=== PATIENT | male | born 1970 | race Caucasian/White ===

== ENCOUNTER 2019-07-23 23:30 | Emergency (ER) | payer BC ==
[~2019-07-23] VITALS: Ht 177.8 cm; Wt 131.8 kg
[2019-07-23 23:31] VITALS: TEMP 98.1
[2019-07-24 00:08] LABS: ALANINE AMINOTRANSFERASE 60 U/L (21-72); ALBUMIN 4.5 gm/dL (3.5-5.0); ALKALINE PHOSPHATASE 97 U/L (50-136); ANION GAP 12 mmol/L (7-16); AST,SGOT 41 U/L (15-37); BILIRUBIN,TOTAL 0.4 mg/dL (0.0-1.0); BLOOD UREA NITROGEN 11 mg/dL (9-20); CALCIUM 9.5 mg/dL (8.4-10.2); CARBON DIOXIDE 25 mmol/L (22-30); CHLORIDE 104 mmol/L (98-107); CREATININE, serum 0.75 (0.66-1.25); GLUCOSE 156 mg/dL (74-106); POTASSIUM 3.9 mmol/L (3.4-5.0); SODIUM 141 mmol/L (137-145); TOTAL PROTEIN 7.8 gm/dL (6.4-8.2)
[2019-07-24 00:10] LABS: BASO # 0.1 (0.0-0.2); BASO % 1.1 % (0.0-2.0); EOS # 0.3 (0.0-0.7); EOS % 3.4 % (0-4.0); GRAN # 5.3 (1.4-6.5); HEMATOCRIT 45.8 % (42.0-52.0); LYMPH % 24.1 % (20.0-51.0); MEAN CELL VOLUME 89 fl (80.0-100.0); MEAN CORPUSCULAR HEMOGLOBIN 31 pg (27.0-31.0); MEAN CORPUSCULAR HGB CONC 35 g/dl (33.0-37.0); MEAN PLATELET VOLUME 8.8 fl (7.4-10.4); MONO # 0.6 (0.1-0.6); MONO % 6.8 % (1.7-9.3); PLATELET COUNT 254 K/mm3 (130-400); RED BLOOD COUNT 5.13 M/mm3 (4.20-5.60); REDCELL DISTRIBUTION WIDTH-CV 12.8 % (11.5-14.5)
[2019-07-24 00:32] LABS: TROPONIN-I < 0.012 ng/mL (0.000-0.035)
[2019-07-24] MEDS ORDERED: ANTIVERT 25MG25 MG PO (00:35)
[2019-07-24] MEDS ORDERED: ZOFRAN ODT4 MG PO (00:35)
[2019-07-24 01:10] VITALS: BP 140/78; PULSE 93
== END 2019-07-24 01:10 | disposition home or self-care (01) ==
LOC: COL.ER 23:30
PROVIDERS: Emergency Medicine
DX: R42 Dizziness and giddiness (principal); I10 Essential (primary) hypertension; Z88.0 Allergy status to penicillin
CPT/HCPCS: J2550; J7030

== ENCOUNTER → 2020-01-31 | Outpatient (CLI) | payer BC ==
[~2020-01-31] MED LIST: ANTIVERT 25MG25 MG PO; ZOFRAN ODT4 MG PO
== END ==
LOC: COL.RAD 12:00
DX: E83.119 Hemochromatosis, unspecified (principal); R79.89 Other specified abnormal findings of blood chemistry; R94.5 Abnormal results of liver function studies; Z12.11 Encounter for screening for malignant neoplasm of colon

== ENCOUNTER 2021-12-14 20:55 | Emergency (ER) | payer BC ==
[~2021-12-14] VITALS: Ht 177.8 cm; Wt 134.1 kg
[2021-12-14 23:33] VITALS: BP 141/96; PULSE 95; TEMP 99.6
== END 2021-12-14 23:34 | disposition home or self-care (01) ==
LOC: COL.ER 20:55
DX: U07.1 COVID-19 (principal); E66.9 Obesity, unspecified; Z87.891 Personal history of nicotine dependence

== ENCOUNTER 2021-12-16 13:09 | Outpatient (CLI) | payer BC ==
[~2021-12-16] VITALS: Ht 177.8 cm; Wt 134.0 kg
[2021-12-16] MEDS ORDERED: TYLENOL 500MG500 MG PO (13:43)
[2021-12-16] MEDS ORDERED: MUCINEX 60600 MG/TA1 PO (13:44)
[2021-12-16 13:45] VITALS: BP 160/87; PULSE 96; TEMP 98.3
[2021-12-16 13:52] VITALS: BP 187/97; PULSE 93
[2021-12-16 14:07] VITALS: BP 163/90; PULSE 77
[2021-12-16 14:22] VITALS: PULSE 71
[2021-12-16 14:31] VITALS: BP 166/91; PULSE 76; TEMP 98.4
== END 2021-12-16 17:03 ==
LOC: EUO 13:09
DX: U07.1 COVID-19 (principal); E11.9 Type 2 diabetes mellitus without complications
CPT/HCPCS: M0222; Q0222